=== PATIENT | female | born 1975 | race Two or more races ===

== ENCOUNTER 2025-08-26 23:12 | Emergency (ER) | payer MEDICAID, OTHER ==
[~2025-08-26] VITALS: Ht 160 cm; Wt 54.4 kg
[2025-08-26 23:15] VITALS: BP 114/76; PULSE 95; RESP 18; TEMP 98.4; O2SAT 96
== END 2025-08-27 02:15 | disposition left against medical advice (07) ==
LOC: ER 23:12
DX: M25.511 Pain in right shoulder (principal); Z53.21 Procedure and treatment not carried out due to patient leaving prior to being seen by health care provider